=== PATIENT | male | born 1975 | race Caucasian/White ===

== ENCOUNTER → 2016-11-04 | Outpatient (CLI) | payer OTHER | END | disposition home or self-care (01) | LOC: CFH 10:04 | PROVIDERS: ATTEND Physician Assistant | DX: M50.223 Other cervical disc displacement at C6-C7 level (principal); M47.896 Other spondylosis, lumbar region; M48.02 Spinal stenosis, cervical region; M79.602 Pain in left arm | CPT/HCPCS: 72141 ==